=== PATIENT | male | born 1965 | race Caucasian/White ===

== ENCOUNTER 2018-03-22 19:45 | Inpatient (IN) | payer MEDICARE, OTHER ==
[2018-03-22] MEDS: LEVOFLOXACIN 750MG/D5W (PMX) 150 ML IVPB (20:00)
[2018-03-22] MEDS: VANCOMYCIN 1 GM (PMX) 250 ML IVPB (20:00)
[2018-03-22 20:24] LABS: ABNORMAL IP MESSAGE 1; HEMATOCRIT 40.3 % (42.0-52.0); HEMOGLOBIN 12.3 g/dl (14.0-18.0); MEAN CORPUSCULAR HEMOGLOBIN 22.3 pg (29.0-33.0); MEAN CORPUSCULAR HGB CONC 30.5 g/dl (32.0-37.0); MEAN PLATELET VOLUME 8.7 fl (7.4-10.4); PLATELET COUNT 753 10^3/UL (140-415); POSITIVE DIFF @See below; RED BLOOD COUNT 5.52 10^6/ul (4.70-6.10); RED CELL DISTRIBUTION WIDTH 19.6 % (11.5-14.5)
[2018-03-22 20:25] LABS: ADD MAN DIFF? YES
[2018-03-22] MEDS: CEFEPIME 2GM/50 ML (PMX) 50 ML IVPB (20:43)
[2018-03-22] MEDS: SODIUM CHLORIDE 0.9% 1L BAG IV* (20:43)
[2018-03-22 20:56] LABS: TROPONIN-I < 0.012 ng/ml (0.000-0.120)
[2018-03-22 21:07] LABS: ADD UMIC YES; UR ASCORBIC ACID NEGATIVE (NEGATIVE); UR BACTERIA MODERATE /HPF (NONE SEEN); UR BILIRUBIN (Dip) NEGATIVE (NEGATIVE); UR BLOOD (Dip) 1+ mg/dL (NEGATIVE); UR CLARITY TURBID (CLEAR); UR COLOR YELLOW (YELLOW); UR GLUCOSE (Dip) NEGATIVE (NEGATIVE); UR KETONES (Dip) NEGATIVE (NEGATIVE); UR LEUKOCYTE ESTERASE (Dip) 3+ Leu/ul (NEGATIVE); UR NITRITE (Dip) NEGATIVE (NEGATIVE); UR RBC 23 /HPF (0-5); UR SPECIFIC GRAVITY (Dip) 1.016 (1.003-1.030); UR TOTAL PROTEIN (Dip) 1+ mg/dl (NEGATIVE); UR UROBILINOGEN (Dip) NEGATIVE (NEGATIVE); UR WBC > 182 /HPF (0-5)
[2018-03-22 21:12] LABS: ALANINE AMINOTRANSFERASE 37 IU/L (13-69); ALBUMIN 3.2 g/dl (3.3-4.9); ALBUMIN/GLOBULIN RATIO 0.94; ALKALINE PHOSPHATASE 215 IU/L (42-121); ANION GAP 22 (5-13); ASPARTATE AMINO TRANSFERASE 30 IU/L (15-46); BILIRUBIN,INDIRECT 0.1 mg/dl (0-1.1); BILIRUBIN,TOTAL 0.1 mg/dl (0.2-1.3); BLOOD UREA NITROGEN 74 mg/dl (7-20); CALCIUM 9.6 mg/dl (8.4-10.2); CARBON DIOXIDE 15 mmol/L (21-31); CHLORIDE 96 mmol/L (97-110); CREATININE 4.56 mg/dl (0.61-1.24); Estimated GFR 14 mL/min (>60); GLUCOSE 170 mg/dl (70-220); POTASSIUM 5.1 mmol/L (3.5-5.1); SODIUM 133 mmol/L (135-144); TOTAL PROTEIN 6.6 g/dl (6.1-8.1)
[2018-03-22 21:15] LABS: ANISOCYTOSIS 1+ (0-0); BAND NEUTROPHILS % (M) 39 % (0-4); LYMPHOCYTES #M 0.5 10^3/ul (0.8-2.9); LYMPHOCYTES % (M) 4 % (15-51); MONOCYTE #M 0.5 10^3/ul (0.3-0.9); MONOCYTES % (M) 4 % (0-11); PLATELET ESTIMATE INCREASED; POIKILOCYTOSIS 2+ (0-0); POLYCHROMASIA 1+ (0-0); SEG NEUT #M 7.5 10^3/ul (1.6-7.5); SEGMENTED NEUTROPHILS (M) % 53 % (39-77); SMUDGE%M 1 % (0-0)
[2018-03-22 21:18] LABS: INR 1.19; PROTIME 15.3 Sec (11.9-14.9); PT RATIO 1.2
[2018-03-22] MEDS: SOD CHLORIDE 0.9% 1,000 ML IV (21:37)
[2018-03-22] MEDS ORDERED: IPRATROPIUM (NEB) 0.5 MG/2.5 ML AMP NEB (22:00)
[2018-03-22] MEDS ORDERED: ALBUTEROL 0.083% (NEB) 2.5 MG/3 ML AMP NEB (22:00)
[2018-03-22] MEDS ORDERED: ONDANSETRON 4 MG INJ IV (22:00)
[2018-03-22] MEDS ORDERED: PIPER-TAZO 2.25 GM (PMX) 50 ML IVPB (22:00)
[2018-03-22] MEDS ORDERED: VANCOMYCIN IV PER PHARMACY XX (22:00)
[2018-03-22] MEDS ORDERED: GLUCOSE GEL 15 GRAM TUBE PO ×2 (23:00)
[2018-03-22] MEDS ORDERED: DEXTROSE 50% 50 ML SYRINGE IV ×2 (23:00)
[2018-03-22] MEDS ORDERED: GLUCAGON 1 MG INJ IM (23:00)
[2018-03-22] MEDS ORDERED: GLUCOSE GEL 15 GRAM TUBE BUCCAL (23:00)
[2018-03-23] MEDS ORDERED: MEROPENEM 500MG/50 ML (PMX) 50 ML IVPB
[2018-03-23] MEDS: INSULIN ASPART [NOVOLOG] 3 ML PEN SC ×5 (00:55→21:00)
[2018-03-23] MEDS: BISACODYL 10 MG SUPP PR ×2 (00:56→22:00)
[2018-03-23] MEDS: traMADol 50 MG TAB PO (00:56)
[2018-03-23] MEDS: HEPARIN 5,000 UNIT/1 ML VIAL SC ×3 (00:58→13:54)
[2018-03-23] MEDS: ACCU-CHEK XX (01:08)
[2018-03-23 01:18] LABS: ADD UMIC YES; UR ASCORBIC ACID NEGATIVE (NEGATIVE); UR BACTERIA MANY /HPF (NONE SEEN); UR BILIRUBIN (Dip) NEGATIVE (NEGATIVE); UR BLOOD (Dip) 2+ mg/dL (NEGATIVE); UR CLARITY TURBID (CLEAR); UR COLOR YELLOW (YELLOW); UR GLUCOSE (Dip) NEGATIVE (NEGATIVE); UR KETONES (Dip) NEGATIVE (NEGATIVE); UR LEUKOCYTE ESTERASE (Dip) 2+ Leu/ul (NEGATIVE); UR MUCUS MODERATE /HPF (NONE SEEN); UR NITRITE (Dip) POSITIVE (NEGATIVE); UR NONSQUAMOUS EPITHELIAL CELL 4 /HPF (NONE SEEN); UR RBC 37 /HPF (0-5); UR SPECIFIC GRAVITY (Dip) 1.013 (1.003-1.030); UR TOTAL PROTEIN (Dip) 2+ mg/dl (NEGATIVE); UR UROBILINOGEN (Dip) NEGATIVE (NEGATIVE); UR WBC > 182 /HPF (0-5)
[2018-03-23 01:30] LABS: LACTIC ACID 4.6 mmol/L (0.5-2.0)
[2018-03-23] MEDS: SOD CHLORIDE 0.9% 1,000 ML IV ×6 (02:00→22:00)
[2018-03-23] MEDS: MEROPENEM 500MG/50 ML (PMX) 50 ML IVPB ×3 (02:00→23:16)
[2018-03-23 02:25] LABS: SODIUM,URINE RANDOM 36 mmol/L (30-90)
[2018-03-23 02:32] LABS: CREATININE,URINE RANDOM 69.72 mg/dl (20-370); PROTEIN/CREAT RATIO 0.77 RATIO
[2018-03-23 03:26] LABS: OSMOLALITY 292 mOsm/kg (280-295)
[2018-03-23] MEDS: HYDROmorphONE 1 MG/ML SYG IV ×4 (03:26→23:12)
[2018-03-23 03:27] LABS: OSMOLALITY,URINE 413 mOsm/kg (250-1200)
[2018-03-23] MEDS ORDERED: LIDOCAINE 1% (MPF) 5 ML VIAL SC (05:00)
[2018-03-23 05:18] LABS: WHITE BLOOD COUNT 13.9 10^3/ul (4.8-10.8)
[2018-03-23 05:18] LABS: ABNORMAL IP MESSAGE 1; HEMATOCRIT 36.6 % (42.0-52.0); HEMOGLOBIN 11.4 g/dl (14.0-18.0); MEAN CORPUSCULAR HEMOGLOBIN 22.5 pg (29.0-33.0); MEAN CORPUSCULAR HGB CONC 31.1 g/dl (32.0-37.0); MEAN CORPUSCULAR VOLUME 72.3 fl (82.0-101.0); MEAN PLATELET VOLUME 8.5 fl (7.4-10.4); PLATELET COUNT 534 10^3/UL (140-415); POSITIVE DIFF @See below; RED BLOOD COUNT 5.06 10^6/ul (4.70-6.10); RED CELL DISTRIBUTION WIDTH 19.1 % (11.5-14.5)
[2018-03-23 05:23] LABS: ADD MAN DIFF? YES
[2018-03-23 05:36] LABS: HEMOGLOBIN A1C 5.2 % (0-5.9)
[2018-03-23 05:40] LABS: IRON 35 ug/dl (35-150)
[2018-03-23 05:45] LABS: LACTIC ACID 3.8 mmol/L (0.5-2.0)
[2018-03-23 05:48] LABS: ALANINE AMINOTRANSFERASE 44 IU/L (13-69); ALBUMIN 2.5 g/dl (3.3-4.9); ALBUMIN/GLOBULIN RATIO 0.96; ALKALINE PHOSPHATASE 154 IU/L (42-121); ANION GAP 17 (5-13); ASPARTATE AMINO TRANSFERASE 30 IU/L (15-46); BILIRUBIN,INDIRECT 0.1 mg/dl (0-1.1); BILIRUBIN,TOTAL 0.1 mg/dl (0.2-1.3); BLOOD UREA NITROGEN 65 mg/dl (7-20); CALCIUM 9.1 mg/dl (8.4-10.2); CARBON DIOXIDE 16 mmol/L (21-31); CHLORIDE 101 mmol/L (97-110); CHOL/HDL RATIO 2.8 RATIO; CHOLESTEROL 90 mg/dl (100-200); CREATININE 3.09 mg/dl (0.61-1.24); Estimated GFR 22 mL/min (>60); GLUCOSE 103 mg/dl (70-220); HDL CHOLESTEROL 32 mg/dl (28-71); LDL CHOLESTEROL,CALCULATED 44 mg/dl; SODIUM 134 mmol/L (135-144); TOTAL PROTEIN 5.1 g/dl (6.1-8.1); TRIGLYCERIDES 68 mg/dl (0-149)
[2018-03-23 05:50] LABS: % IRON SATURATION 20 % SAT (22-52); TOTAL IRON BINDING CAPACITY 177 ug/dl (241-421)
[2018-03-23] MEDS: ALBUMIN HUMAN 25% 100 ML IV ×2 (05:55→06:01)
[2018-03-23 05:59] LABS: FREE T3 2.14 pg/ml (2.77-5.27)
[2018-03-23] MEDS: PANTOPRAZOLE 40 MG INJ IV (06:09)
[2018-03-23 06:15] LABS: FREE T4 (FREE THYROXINE) 2.33 ng/dl (0.64-1.79)
[2018-03-23 07:24] LABS: ANISOCYTOSIS 1+ (0-0); BAND NEUTROPHILS #M 10.7 10^3/ul (0.0-0.6); BAND NEUTROPHILS % (M) 77 % (0-4); BURR CELLS 3+ (0-0); GIANT THROMBO% (M) 1 % (0-0); LYMPHOCYTES #M 0.5 10^3/ul (0.8-2.9); LYMPHOCYTES % (M) 4 % (15-51); MONOCYTE #M 0.2 10^3/ul (0.3-0.9); MONOCYTES % (M) 2 % (0-11); PLATELET ESTIMATE INCREASED; POIKILOCYTOSIS 3+ (0-0); POLYCHROMASIA 1+ (0-0); SEG NEUT #M 3.9 10^3/ul (1.6-7.5); SEGMENTED NEUTROPHILS (M) % 17 % (39-77); SMUDGE%M 23 % (0-0); SPHEROCYTES 1+ (0-0)
[2018-03-23] MEDS: DOCUSATE SODIUM 100 MG CAP PO ×2 (08:49→23:16)
[2018-03-23] MEDS: ASCORBIC ACID 500 MG TAB PO ×2 (08:50→23:15)
[2018-03-23] MEDS: AMANTADINE 100 MG CAP PO ×2 (08:50→23:22)
[2018-03-23] MEDS: BACLOFEN 10 MG TAB PO ×2 (08:50→23:15)
[2018-03-23] MEDS: OLANZAPINE 2.5 MG TAB PO ×2 (08:52→23:23)
[2018-03-23] MEDS ORDERED: PIPER-TAZO 3.375 GM IV (PMX) 100 ML IVPB (09:00)
[2018-03-23] MEDS: Insulin NOVOLOG SS MILD Algorithm (SS with meals and bedtime) SC (11:00)
[2018-03-23 12:28] LABS: LACTIC ACID 2.1 mmol/L (0.5-2.0)
[2018-03-23] MEDS: LIDOCAINE 1% (MPF) 5 ML VIAL SC (16:54)
[2018-03-23] MEDS ORDERED: INSULIN ASPART [NOVOLOG] 3 ML PEN SC (17:05)
[2018-03-23] MEDS: ESCITALOPRAM 10 MG TAB PO (23:15)
[2018-03-23] MEDS ORDERED: LORAZEPAM 4 MG/ML VIAL (23:54)
[2018-03-24] MEDS: LORAZEPAM 4 MG/ML VIAL IV (00:46)
[2018-03-24] MEDS: ACCU-CHEK XX (02:00)
[2018-03-24] MEDS: HEPARIN 5,000 UNIT/1 ML VIAL SC ×4 (03:30→22:28)
[2018-03-24] MEDS: SOD CHLORIDE 0.9% 1,000 ML IV ×3 (04:58→17:28)
[2018-03-24 05:41] LABS: ABNORMAL IP MESSAGE 1; HEMATOCRIT 28.1 % (42.0-52.0); MEAN CORPUSCULAR HEMOGLOBIN 22.8 pg (29.0-33.0); MEAN CORPUSCULAR VOLUME 71.1 fl (82.0-101.0); MEAN PLATELET VOLUME 8.3 fl (7.4-10.4); PLATELET COUNT 533 10^3/UL (140-415); POSITIVE DIFF @See below; RED BLOOD COUNT 3.95 10^6/ul (4.70-6.10); RED CELL DISTRIBUTION WIDTH 18.6 % (11.5-14.5)
[2018-03-24 05:41] LABS: WHITE BLOOD COUNT 29.6 10^3/ul (4.8-10.8)
[2018-03-24 05:44] LABS: ADD MAN DIFF? YES
[2018-03-24 06:10] LABS: ALANINE AMINOTRANSFERASE 30 IU/L (13-69); ALBUMIN 2.6 g/dl (3.3-4.9); ALBUMIN/GLOBULIN RATIO 0.92; ALKALINE PHOSPHATASE 153 IU/L (42-121); ANION GAP 12 (5-13); ASPARTATE AMINO TRANSFERASE 23 IU/L (15-46); BLOOD UREA NITROGEN 30 mg/dl (7-20); CALCIUM 9.1 mg/dl (8.4-10.2); CARBON DIOXIDE 19 mmol/L (21-31); CHLORIDE 109 mmol/L (97-110); CREATININE 0.81 mg/dl (0.61-1.24); Estimated GFR > 60 mL/min (>60); GLUCOSE 115 mg/dl (70-220); SODIUM 140 mmol/L (135-144); TOTAL PROTEIN 5.4 g/dl (6.1-8.1)
[2018-03-24] MEDS: PANTOPRAZOLE 40 MG INJ IV (06:20)
[2018-03-24 06:22] LABS: LACTIC ACID 1.1 mmol/L (0.5-2.0)
[2018-03-24 06:23] LABS: VANCOMYCIN,RANDOM < 5.0 ug/ml
[2018-03-24 06:54] LABS: ANISOCYTOSIS 1+ (0-0); BAND NEUTROPHILS #M 2.9 10^3/ul (0.0-0.6); BAND NEUTROPHILS % (M) 10 % (0-4); BURR CELLS 2+ (0-0); MONOCYTE #M 0.5 10^3/ul (0.3-0.9); MONOCYTES % (M) 2 % (0-11); PLATELET ESTIMATE INCREASED; POIKILOCYTOSIS 3+ (0-0); SEG NEUT #M 26.9 10^3/ul (1.6-7.5); SEGMENTED NEUTROPHILS (M) % 88 % (39-77)
[2018-03-24] MEDS: SOD CHLORIDE 0.9% 500 ML IV (07:51)
[2018-03-24] MEDS: INSULIN ASPART [NOVOLOG] 3 ML PEN SC ×4 (08:00→21:00)
[2018-03-24] MEDS: BACLOFEN 10 MG TAB PO ×2 (08:06→20:44)
[2018-03-24] MEDS: POTASSIUM CHLORIDE (SR) 20 MEQ TAB PO (08:07)
[2018-03-24] MEDS: AMANTADINE 100 MG CAP PO ×2 (08:12→20:43)
[2018-03-24] MEDS: OLANZAPINE 2.5 MG TAB PO ×2 (08:12→20:43)
[2018-03-24] MEDS: DOCUSATE SODIUM 100 MG CAP PO ×2 (08:12→20:43)
[2018-03-24] MEDS: ASCORBIC ACID 500 MG TAB PO ×2 (08:19→20:44)
[2018-03-24] MEDS: MEROPENEM 500MG/50 ML (PMX) 50 ML IVPB ×2 (08:25→21:12)
[2018-03-24] MEDS: VANCOMYCIN 1 GM 250 ML IVPB ×2 (09:21→20:45)
[2018-03-24] MEDS: HYDROmorphONE 1 MG/ML SYG IV (18:45)
[2018-03-24] MEDS: ESCITALOPRAM 10 MG TAB PO (20:43)
[2018-03-24] MEDS: BISACODYL 10 MG SUPP PR (22:19)
[2018-03-25] MEDS: HYDROmorphONE 1 MG/ML SYG IV (00:28)
[2018-03-25] MEDS: ACCU-CHEK XX (02:00)
[2018-03-25] MEDS: LORAZEPAM 4 MG/ML VIAL IV ×2 (03:44→20:40)
[2018-03-25] MEDS: PANTOPRAZOLE 40 MG INJ IV (05:23)
[2018-03-25] MEDS: HEPARIN 5,000 UNIT/1 ML VIAL SC ×3 (05:39→21:17)
[2018-03-25 06:51] LABS: PATH REVIEW DK
[2018-03-25] MEDS: INSULIN ASPART [NOVOLOG] 3 ML PEN SC ×4 (07:59→21:00)
[2018-03-25] MEDS: SODIUM HYPOCHLORITE (1/40) 1 APPLIC BTL IRR (09:00)
[2018-03-25] MEDS: VANCOMYCIN 1 GM 250 ML IVPB ×2 (09:25→21:31)
[2018-03-25] MEDS: MEROPENEM 500MG/50 ML (PMX) 50 ML IVPB (09:28)
[2018-03-25] MEDS: OLANZAPINE 2.5 MG TAB PO ×2 (09:34→21:11)
[2018-03-25] MEDS: AMANTADINE 100 MG CAP PO ×2 (09:34→21:11)
[2018-03-25] MEDS: ASCORBIC ACID 500 MG TAB PO ×2 (09:34→21:11)
[2018-03-25] MEDS: BACLOFEN 10 MG TAB PO ×2 (09:35→21:11)
[2018-03-25] MEDS: DOCUSATE SODIUM 100 MG CAP PO ×2 (09:35→21:11)
[2018-03-25 10:55] LABS: WHITE BLOOD COUNT 25.9 10^3/ul (4.8-10.8)
[2018-03-25 10:55] LABS: ABNORMAL IP MESSAGE 1; HEMATOCRIT 27.8 % (42.0-52.0); HEMOGLOBIN 8.6 g/dl (14.0-18.0); MEAN CORPUSCULAR HEMOGLOBIN 22.4 pg (29.0-33.0); MEAN CORPUSCULAR HGB CONC 30.9 g/dl (32.0-37.0); MEAN CORPUSCULAR VOLUME 72.4 fl (82.0-101.0); MEAN PLATELET VOLUME 8.5 fl (7.4-10.4); PLATELET COUNT 427 10^3/UL (140-415); POSITIVE DIFF @See below; RED BLOOD COUNT 3.84 10^6/ul (4.70-6.10); RED CELL DISTRIBUTION WIDTH 19.4 % (11.5-14.5)
[2018-03-25 10:57] LABS: ADD MAN DIFF? YES
[2018-03-25 11:22] LABS: ALANINE AMINOTRANSFERASE 33 IU/L (13-69); ALBUMIN 2.3 g/dl (3.3-4.9); ALBUMIN/GLOBULIN RATIO 0.79; ALKALINE PHOSPHATASE 158 IU/L (42-121); ANION GAP 8 (5-13); ANISOCYTOSIS 1+ (0-0); ASPARTATE AMINO TRANSFERASE 50 IU/L (15-46); BAND NEUTROPHILS % (M) 4 % (0-4); BILIRUBIN,INDIRECT 0.1 mg/dl (0-1.1); BILIRUBIN,TOTAL 0.1 mg/dl (0.2-1.3); BLOOD UREA NITROGEN 16 mg/dl (7-20); BURR CELLS 1+ (0-0); CALCIUM 9.2 mg/dl (8.4-10.2); CARBON DIOXIDE 21 mmol/L (21-31); CHLORIDE 116 mmol/L (97-110); Estimated GFR > 60 mL/min (>60); GLUCOSE 86 mg/dl (70-220); LYMPHOCYTES #M 1.2 10^3/ul (0.8-2.9); LYMPHOCYTES % (M) 5 % (15-51); MICROCYTOSIS 1+ (0-0); MONOCYTE #M 0.5 10^3/ul (0.3-0.9); MONOCYTES % (M) 2 % (0-11); OVALOCYTES 1+ (0-0); PLATELET ESTIMATE NORMAL; POIKILOCYTOSIS 1+ (0-0); POLYCHROMASIA 1+ (0-0); REACTIVE LYMPHOCYTES #M 0.5 10^3/ul (0.0-0.0); REACTIVE LYMPHOCYTES% (M) 2 % (0-0); SEG NEUT #M 22.8 10^3/ul (1.6-7.5); SEGMENTED NEUTROPHILS (M) % 87 % (39-77); SMUDGE%M 2 % (0-0); SODIUM 145 mmol/L (135-144); TARGET CELLS 1+ (0-0); TOTAL PROTEIN 5.2 g/dl (6.1-8.1)
[2018-03-25 11:25] LABS: POTASSIUM 2.6 mmol/L (3.5-5.1)
[2018-03-25] MEDS: POTASSIUM CHLORIDE 100 ML IVPB ×4 (13:46→20:47)
[2018-03-25] MEDS: PIPER-TAZO 3.375 GM IV (PMX) 100 ML IVPB (17:50)
[2018-03-25] MEDS: ESCITALOPRAM 10 MG TAB PO (21:11)
[2018-03-25] MEDS: BISACODYL 10 MG SUPP PR (21:11)
[2018-03-26] MEDS: ACCU-CHEK XX (02:00)
[2018-03-26] MEDS: PIPER-TAZO 3.375 GM IV (PMX) 100 ML IVPB ×2 (02:18→06:00)
[2018-03-26] MEDS: ACETAMINOPHEN 650MG/20.3ML CUP PO (02:59)
[2018-03-26] MEDS ORDERED: LEVALBUTEROL (NEB) 1.25 MG/0.5 ML AMP HHN (03:00)
[2018-03-26 03:21] LABS: AADO2 Arterial 580.5 mmHg (7.0-24.0); Allen Test ACCEPTAB; Arterial Base Excess -5.4 mmol/L (-3.0-3); Arterial Blood Gas Oxygen Sat 96.1 mmHG (95.0-98.0); Arterial COHb 0.2 % (0.0-3.0); Arterial Fraction of Oxyhgb 95.6 % (93.0-99.0); Arterial HCO3 20.6 mmol/L (22.0-26.0); Arterial MetHb 0.3 % (0.0-1.5); Arterial pCO2 41.9 mmhg (35-45); MODE MASK - NRB; Site Right Radial
[2018-03-26] MEDS: LORAZEPAM 4 MG/ML VIAL IV (04:35)
[2018-03-26] MEDS: SOD CHLORIDE 0.9% 1,000 ML IV (04:50)
[2018-03-26] MEDS: HEPARIN 5,000 UNIT/1 ML VIAL SC (07:00)
[2018-03-26] MEDS ORDERED: LORAZEPAM (MDV) 60 MG in DEXTROSE 5% 30 ML IV (08:00)
[2018-03-26] MEDS: INSULIN ASPART [NOVOLOG] 3 ML PEN SC (08:00)
[2018-03-26] MEDS: SODIUM HYPOCHLORITE (1/40) 1 APPLIC BTL IRR (09:00)
[2018-03-26] MEDS: ASCORBIC ACID 500 MG TAB PO (09:00)
[2018-03-26] MEDS: VANCOMYCIN 1 GM 250 ML IVPB (09:00)
[2018-03-26] MEDS: AMANTADINE 100 MG CAP PO (09:00)
[2018-03-26] MEDS: OLANZAPINE 2.5 MG TAB PO (09:00)
[2018-03-26] MEDS: DOCUSATE SODIUM 100 MG CAP PO (09:00)
[2018-03-26] MEDS: BACLOFEN 10 MG TAB PO (09:00)
[2018-03-26] MEDS: morphine (DRIP) 100 MG/100 ML 100 ML IV (09:50)
[2018-03-26] MEDS ORDERED: LORAZEPAM 4 MG/ML VIAL IV ×3 (10:00→15:30)
[2018-03-26] MEDS ORDERED: ALBUTEROL/IPRATROPIUM (NEB) 3 ML AMP HHN (15:30)
[2018-03-26] MEDS ORDERED: morphine 4 MG/ML VIAL IV (15:30)
[2018-03-26] MEDS ORDERED: ONDANSETRON 4 MG INJ IV (15:30)
[2018-03-26] MEDS ORDERED: ARTIFICIAL TEARS 15 ML OPH BOTH EYES (15:30)
[2018-03-26] MEDS ORDERED: BISACODYL 10 MG SUPP PR (15:30)
[2018-03-26] MEDS ORDERED: DIMETHICONE STICK TOP (15:30)
[2018-03-26] MEDS ORDERED: ATROPINE 1% 5 ML OPH SL (15:30)
[2018-03-26] MEDS ORDERED: ACETAMINOPHEN 650 MG SUPP PR (15:30)
[2018-03-26] MEDS ORDERED: morphine (DRIP) 100 MG/100 ML 100 ML IV (15:30)
== END 2018-03-27 05:10 | disposition expired | DRG 981 ==
LOC: ICU 21:44 → PP2 03-26 12:08 → E/R 19:45 → 6WM 03-23 20:05
PROVIDERS: Family Medicine
PROC: 02H633Z Insertion of Infusion Device into Right Atrium, Percutaneous Approach (ICD-10-PCS; 2018-03-23)
PROC: 0KBW0ZZ Excision of Left Foot Muscle, Open Approach (ICD-10-PCS; principal; 2018-03-24)
PROC: 0KBV0ZZ Excision of Right Foot Muscle, Open Approach (ICD-10-PCS; 2018-03-24)
DX: T83.511A Infection and inflammatory reaction due to indwelling urethral catheter, initial encounter (principal); L89.893 Pressure ulcer of other site, stage 3; L89.224 Pressure ulcer of left hip, stage 4; R65.21 Severe sepsis with septic shock; J18.9 Pneumonia, unspecified organism; J69.0 Pneumonitis due to inhalation of food and vomit; A41.51 Sepsis due to Escherichia coli [E. coli]; R65.20 Severe sepsis without septic shock; N17.9 Acute kidney failure, unspecified; M86.8X5 Other osteomyelitis, thigh; M86.8X7 Other osteomyelitis, ankle and foot; N13.30 Unspecified hydronephrosis; N39.0 Urinary tract infection, site not specified; N13.9 Obstructive and reflux uropathy, unspecified; G35 Multiple sclerosis; F20.9 Schizophrenia, unspecified; Z87.891 Personal history of nicotine dependence; G31.83 Neurocognitive disorder with Lewy bodies; F02.80 Dementia in other diseases classified elsewhere, unspecified severity, without behavioral disturbance, psychotic disturbance, mood disturbance, and anxiety; B96.20 Unspecified Escherichia coli [E. coli] as the cause of diseases classified elsewhere; Z16.12 Extended spectrum beta lactamase (ESBL) resistance; Z66 Do not resuscitate
CPT/HCPCS: 36415; 36569; 36600; 71045; 73630; 73630-LT; 74018; 74176; 76775; 76937; 80053; 80061; 80202; 81001; 81003; 82533; 82570; 82728; 82803; 82962; 83036; 83540; 83605; 83735; 83930; 83935; 84300; 84439; 84443; 84481; 84484; 85025; 85610; 85730; 87040; 87070; 87081; 87086; 93005; 96374; 96375; 99291-25